=== PATIENT | male | born 1980 | race Asian ===

== ENCOUNTER 2023-12-11 08:40 | Emergency (ER) | payer MEDICAID ==
[~2023-12-11] VITALS: Ht 182.9 cm; Wt 74.8 kg
[2023-12-11 08:49] VITALS: BP 128/79; PULSE 85; RESP 18; TEMP 100.3; O2SAT 96
[2023-12-11 09:30] LABS: HEMATOCRIT 27.7 % (36-52); HEMOGLOBIN 8.8 g/dL (12.0-18.0); MEAN CORPUSCULAR HEMOGLOBIN 28 pg (27-31); MEAN CORPUSCULAR HGB CONC 32 g/dL (33-37); MEAN CORPUSCULAR VOLUME 88.3 fL (80-94); PLATELET COUNT (AUTO) 487 K/uL (140-450); RED BLOOD CELL COUNT(AUTO) 3.14 MIL/uL (4.20-6.10); RED CELL DISTRIBUTION WIDTH 15.6 % (11.6-13.7)
[2023-12-11 09:39] LABS: ANION GAP 10.3 (8-16); CALCIUM 9.3 mg/dL (8.5-10.1); CARBON DIOXIDE 31.6 mmol/L (21-32); POTASSIUM 4.9 mmol/L (3.5-5.1)
[2023-12-11 09:43] LABS: CREATININE 7.5 mg/dL (0.6-1.3)
[2023-12-11 10:07] LABS: BASOPHILS % (MANUAL) 0 % (0-2); BLASTS, MANUAL % 0 % (0-0); EOSINOPHILS % (MANUAL) 1 % (0-4); LYMPHOCYTES % (MANUAL) 15 % (20-46); METAMYELOCYTES % 0 % (0-0); MONOCYTES % (MANUAL) 9 % (5-12); MYELOCYTES % 0 % (0-0); OTHER CELLS,MANUAL % 0 (0-0); PLASMA CELLS 0; PLATELET ESTIMATE INCREASED; PROMYELOCYTES % 0 % (0-0); SMUDGE CELLS 0
[2023-12-11] MEDS ORDERED: KETOROLAC 60 MG/2 ML VIAL IM ONE (11:00)
[2023-12-11] MEDS ORDERED: ACET-503 PO (11:16)
[2023-12-11 11:38] VITALS: BP 131/69; PULSE 80; RESP 16; O2SAT 95
== END 2023-12-11 11:39 | disposition home or self-care (01) ==
LOC: MED 08:40
DX: R53.1 Weakness (principal); I12.0 Hypertensive chronic kidney disease with stage 5 chronic kidney disease or end stage renal disease; N18.6 End stage renal disease; Z99.2 Dependence on renal dialysis; Z79.899 Other long term (current) drug therapy
CPT/HCPCS: 36415; 71045; 80048; 85025; 96372; 99284; J1885

== ENCOUNTER 2023-12-29 09:12 | Emergency (ER) | payer MEDICAID, OTHER ==
[~2023-12-29] VITALS: Ht 172.7 cm; Wt 79.8 kg
[~2023-12-29 09:12] MED LIST: ACET-503 PO
[2023-12-29 09:23] VITALS: BP 127/75; PULSE 104; RESP 16; TEMP 98.7; O2SAT 95
[2023-12-29 10:47] LABS: BASOPHILS % (AUTO) 0.4 % (0.0-2.0); EOSINOPHILS % (AUTO) 0.2 % (0.0-4.0); HEMATOCRIT 24.5 % (36-52); HEMOGLOBIN 7.9 g/dL (12.0-18.0); LYMPHOCYTES # (AUTO) 0.7 K/uL (2.0-11.5); LYMPHOCYTES % (AUTO) 12.3 % (20.5-51.1); MEAN CORPUSCULAR HEMOGLOBIN 28 pg (27-31); MEAN CORPUSCULAR HGB CONC 32 g/dL (33-37); MEAN CORPUSCULAR VOLUME 86.3 fL (80-94); MONOCYTES # (AUTO) 0.5 K/uL (0.8-1.0); MONOCYTES % (AUTO) 8.6 % (1.7-9.3); NEUTROPHILS # (AUTO) 4.4 K/uL (1.8-7.7); NEUTROPHILS % (AUTO) 78.5 % (42.2-75.2); PLATELET COUNT (AUTO) 280 K/uL (140-450); RED BLOOD CELL COUNT(AUTO) 2.84 MIL/uL (4.20-6.10); RED CELL DISTRIBUTION WIDTH 17.5 % (11.6-13.7); WHITE BLOOD COUNT (AUTO) 5.6 K/uL (4.8-10.8)
[2023-12-29 11:02] LABS: ALANINE AMINOTRANSFERASE 10 U/L (12-78); ALKALINE PHOSPHATASE 71 U/L (50-136); ASPARTATE AMINOTRANSFERASE 27 U/L (15-37); BILIRUBIN,DIRECT 0.1 mg/dL (0.0-0.3); CREATINE KINASE, TOTAL 39 U/L (39-308); TOTAL BILIRUBIN 0.3 mg/dL (0.0-1.0); TOTAL PROTEIN, SERUM 6.9 g/dL (6.4-8.2)
[2023-12-29 11:04] LABS: CALCIUM 8.7 mg/dL (8.5-10.1); CARBON DIOXIDE 29.9 mmol/L (21-32); POTASSIUM 3.9 mmol/L (3.5-5.1)
[2023-12-29 11:25] LABS: CREATININE 5.5 mg/dL (0.6-1.3)
[2023-12-29] MEDS: KETOROLAC 30 MG/ML VIAL IM ONE (13:51)
[2023-12-29 13:56] VITALS: BP 144/94; PULSE 89; RESP 16; O2SAT 96
== END 2023-12-29 13:56 | disposition home or self-care (01) ==
LOC: MED 09:12
DX: I12.0 Hypertensive chronic kidney disease with stage 5 chronic kidney disease or end stage renal disease (principal); N18.6 End stage renal disease; D63.1 Anemia in chronic kidney disease; Z99.2 Dependence on renal dialysis; Z98.890 Other specified postprocedural states; Z79.899 Other long term (current) drug therapy
CPT/HCPCS: 36415; 73552; 80048; 80076; 82550; 84484; 85025; 93005; 96372; 99285; J1885